=== PATIENT | female | born 1985 | race Caucasian/White ===

== ENCOUNTER 2016-11-10 20:38 | Emergency (ER) | payer OTHER ==
[2016-11-10 21:40] LABS: BASO % 0.2 % (0.1-1.2); EOS # 0.2 10_X3_uL (0.0-0.4); EOS % 1.6 % (0.7-5.8); GRAN # 9.3 10_X3_uL (1.6-6.1); GRAN % 70.4 % (34.0-71.1); HEMATOCRIT 43.5 % (34-45); HEMOGLOBIN 14.6 g/dL (11.2-15.7); LYMPH # 2.9 10_X3_uL (1.2-3.7); LYMPH % 21.9 % (19.3-51.7); MEAN CORPUSCULAR HGB CONC 33.6 g/dL (32.0-36.0); MEAN CORPUSCULAR VOLUME 98.2 fL (79-95); MEAN PLATELET VOLUME 9.6 fl (7.5-11.5); MONO # 0.8 10_X3_uL (0.2-0.9); MONO % 5.9 % (4.7-12.5); PLATELET COUNT 285 x10_3/uL (182-369); RED BLOOD COUNT 4.43 x10_6/uL (3.9-5.2); RED CELL DISTRIBUTION WIDTH 13.5 % (11.7-14.4); WHITE BLOOD COUNT 13.2 x10_3/uL (4.0-10.0)
[2016-11-10 21:42] LABS: URINE BILIRUBIN NEGATIVE (NEGATIVE); URINE BLOOD TRACE (NEGATIVE); URINE GLUCOSE (UA) NORMAL (NORMAL); URINE KETONE NEGATIVE (NEGATIVE); URINE LEUKOCYTE ESTERASE TRACE (NEGATIVE); URINE NITRATE NEGATIVE (NEGATIVE); URINE PROTEIN TRACE (NEGATIVE)
[2016-11-10 21:53] LABS: BLOOD UREA NITROGEN 11 mg/dL (7-18); CALCIUM 9.5 mg/dL (8.7-10.7); CARBON DIOXIDE 26 mmol/L (21-32); CREATININE 0.7 mg/dL (0.6-1.3); GLUCOSE,RANDOM 89 mg/dL (70-99); POTASSIUM 4.1 mmol/L (3.5-5.1); SODIUM 141 mmol/L (136-145)
[2016-11-10 21:58] LABS: URINE RBC 0-5 /[HPF] (0-2); URINE WBC 0-5 /[HPF] (0-5)
[2016-11-10 21:59] LABS: URINE AMORPHOUS SEDIMENT 1+
== END 2016-11-10 23:02 | disposition home or self-care (01) ==
LOC: ER 20:38
PROVIDERS: General Practice
DX: N39.0 Urinary tract infection, site not specified (principal); N83.202 Unspecified ovarian cyst, left side; R10.32 Left lower quadrant pain; R10.9 Unspecified abdominal pain; R31.9 Hematuria, unspecified; R00.2 Palpitations; Z98.51 Tubal ligation status; N80.9 Endometriosis, unspecified; Z88.1 Allergy status to other antibiotic agents
CPT/HCPCS: 36415; 74150; 80048; 81001; 81025; 85025; 99070; 99284-25